=== PATIENT | male | born 1955 | race Caucasian/White ===

== ENCOUNTER 2020-11-25 18:36 | Emergency (ER) | payer MEDICAID ==
[2020-11-25] MEDS ORDERED: HYDROcod/ACET 5/325 Prepack 4 PO STA (19:26)
[2020-11-25] MEDS ORDERED: SULFAMETH/TRIMETH DS 800/160 MG TABLET PO STA (19:26)
[2020-11-25] MEDS ORDERED: ceFAZolin 1 GM VIAL IM STA (19:26)
--- NOTE | 2020-11-25 19:28 | ED Physician Documentation ---
PD HPI WOUND RECHECK - Stated complaint Stated Complaint: LT LEG PX/SWELLING - Chief complaint Chief Complaint: Wound - Histroy obtained from History obtained from: Patient (Relatively healthy 65-year-old brenda with no history of diabetes presents with a several day history of a painful lesion on the left leg with drainage. He took an unknown antibiotic, single dose yesterday. No personal history of MRSA. No fevers.) Review of Systems Constitutional: reports: Reviewed and negative Eyes: reports: Reviewed and negative Ears: reports: Reviewed and negative Nose: reports: Reviewed and negative Throat: reports: Reviewed and negative Cardiac: reports: Reviewed and negative Respiratory: reports: Reviewed and negative PD PAST MEDICAL HISTORY - Past Surgical History Past Surgical History: No - Present Medications Home Medications: Ambulatory Orders Medication Instructions Recorded Confirmed HYDROcod/ACETAM 5/325 [[place] 5/325] 1 - 2 tab PO Q6H PRN #10 tablet 11/25/20 Sulfamethox/Trimeth 800/160 1 each PO BID #20 tablet 11/25/20 [Bactrim Ds 800/160] cephALEXin [Keflex] 500 mg PO Q6H #40 cap 11/25/20 - Allergies Allergies/Adverse Reactions: Allergies Allergy/AdvReac Type Severity Reaction Status Date / Time No Known Drug Allergies Allergy Verified 11/25/20 18:54 - Social History Does the pt smoke?: No Smoking Status: Never smoker Does the pt drink ETOH?: Yes Does the pt have substance abuse?: Yes Substance Use and Type: Meth - Immunizations Immunizations are current?: No Immunizations: TDAP >10years/unknown PD ED PE NORMAL - Vitals Vital signs reviewed: Yes - General General: Alert and oriented X 3, No acute distress - HEENT HEENT: PERRL, EOMI - Neck Neck: Supple, no meningeal sign, No bony TTP - Extremities Extremities: Other (There is a draining dime sized abscess that was probed and did not go deep with surrounding cellulitis on the left leg. A culture was done during exam.) - Neuro Neuro: Alert and oriented X 3, Normal speech Results - Vitals Vitals: Vital Signs - 24 hr 11/25/20 18:47 Temperature 37.5 C Heart Rate 61 Respiratory 20 Rate Blood Pressure 113/98 H O2 Saturation 96 Oxygen O2 Source Room air PD MEDICAL DECISION MAKING - ED course ED course: 65-year-old gentleman with purulent cellulitis treated with 2 g of Ancef IM here in [place] with Keflex and Bactrim to go. A culture is pending. He is nontoxic. Departure - Departure Disposition: 01 Home, Self Care Clinical Impression: Abscess Condition: Good Record reviewed to determine appropriate education?: Yes Instructions: ED Staph Infec Abx Tx Only Prescriptions: Sulfamethox/Trimeth 800/160 [Bactrim Ds 800/160] 1 each PO BID #20 tablet cephALEXin [Keflex] 500 mg PO Q6H #40 cap HYDROcod/ACETAM 5/325 [[place] 5/325] 1 - 2 tab PO Q6H PRN #10 tablet PRN Reason: Pain Comments: We are performing a wound culture, the results should be done in 48-72 hours. If antibiotic change is necessary we will call you. Return if worse in the meantime, especially if you develop increased pain, fevers, cannot keep down the medication. Otherwise follow-up with your physician in approximately 2-3 days.
[2020-11-25 20:01] VITALS: BP 141/99
== END 2020-11-25 20:05 | disposition home or self-care (01) ==
LOC: ED 18:36
DX: L02.416 Cutaneous abscess of left lower limb (principal); L03.116 Cellulitis of left lower limb
CPT/HCPCS: 87070; 87077; 87181; 87205; 96372; 99283; 99284; A9270

== ENCOUNTER 2021-08-30 15:35 | Emergency (ER) | payer MEDICAID ==
[2021-08-30 15:41] VITALS: BP 130/90
[2021-08-30] MEDS ORDERED: cephALEXin 250 MG CAPSULE PO STA (16:00)
[2021-08-30] MEDS ORDERED: SULFAMETH/TRIMETH DS 800/160 MG TABLET PO STA (16:00)
--- NOTE | 2021-08-30 16:03 | ED Physician Documentation ---
PD HPI SKIN - Stated complaint Stated Complaint: RT WRIST BUG BITE/BLEED/PUS - Chief complaint Chief Complaint: Wound - History obtained from History obtained from: Patient - Additional information Additional information: The patient comes to the emergency department with chief complaint of a draining wound on his right wrist. Patient states it started several days ago and that he thought perhaps he had a spider bite at that time. He states that he had a painful "bump" and the area just kept becoming more enlarged and more erythematous until finally yesterday, the wound began to drain. Patient states that he has not had any fevers or chills. He has noticed that the area of redness is enlarging, even though the wound initially felt better after drainage. No other complaints at this time. Review of Systems Ten Systems: 10 systems reviewed and negative Constitutional: reports: Reviewed and negative Eyes: reports: Reviewed and negative Ears: reports: Reviewed and negative Nose: reports: Reviewed and negative Throat: reports: Reviewed and negative Cardiac: reports: Reviewed and negative Respiratory: reports: Reviewed and negative GI: reports: Reviewed and negative : reports: Reviewed and negative Skin: reports: Lesions, Bite / sting Musculoskeletal: reports: Other Neurologic: reports: Reviewed and negative Psychiatric: reports: Reviewed and negative Endocrine: reports: Reviewed and negative Immunocompromised: reports: Reviewed and negative PD PAST MEDICAL HISTORY - Past Surgical History Past Surgical History: No - Present Medications Home Medications: Ambulatory Orders Medication Instructions Recorded Confirmed HYDROcod/ACETAM 5/325 [[place] 5/325] 1 - 2 tab PO Q6H PRN #10 tablet 11/25/20 Sulfamethox/Trimeth 800/160 1 each PO BID #20 tablet 11/25/20 [Bactrim Ds 800/160] cephALEXin [Keflex] 500 mg PO Q6H #40 cap 11/25/20 Sulfamethox/Trimeth 800/160 1 each PO BID #14 tablet 08/30/21 [Bactrim Ds 800/160] cephALEXin [Keflex] 500 mg PO Q6H #28 tab 08/30/21 - Allergies Allergies/Adverse Reactions: Allergies Allergy/AdvReac Type Severity Reaction Status Date / Time No Known Drug Allergies Allergy Verified 08/30/21 15:38 - Social History Does the pt smoke?: No Smoking Status: Never smoker Does the pt drink ETOH?: Yes Does the pt have substance abuse?: Yes - Immunizations Immunizations are current?: No Immunizations: TDAP >10years/unknown PD ED PE NORMAL - Vitals Vital signs reviewed: Yes - General General: Alert and oriented X 3, No acute distress, Well developed/nourished - HEENT HEENT: Atraumatic, PERRL, EOMI, Moist mucous membranes - Neck Neck: Supple, no meningeal sign - Cardiac Cardiac: Strong equal pulses - Respiratory Respiratory: No respiratory distress - Derm Derm: Warm and dry, Other (6 cm diameter area of erythema with centrally located open, draining sore with expressible purulent discharge. 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 He was started on Bactrim and Keflex. We have discussed wound care at home and the usual indications for return. Departure - Departure Disposition: 01 Home, Self Care Clinical Impression: Cellulitis and abscess of upper extremity Condition: Stable Instructions: ED Infec Skin Cellulitis Prescriptions: Sulfamethox/Trimeth 800/160 [Bactrim Ds 800/160] 1 each PO BID #14 tablet cephALEXin [Keflex] 500 mg PO Q6H #28 tab Comments: Your wound has been cleaned and irrigated today, and you have been started on antibiotics. Please keep the wound clean and dry and take the antibiotics as directed. If after you finish the course of antibiotics, you do not notice s ignificant improvement in the surrounding redness, please have the wound rechecked
== END 2021-08-30 16:25 | disposition home or self-care (01) ==
LOC: ED 15:35
DX: L03.113 Cellulitis of right upper limb (principal)
CPT/HCPCS: 99282; A9270